=== PATIENT | female | born 1980 | race Caucasian/White ===

== ENCOUNTER → 2016-06-10 | Outpatient (REF) | payer MEDICARE, MEDICAID ==
[~2016-06-10] MED LIST: ABIL2TAB2 PO; ACET500C OR; ACET500C PO; ADVAIR INH; BACITRACIN OINTMENT TOP; BACL-67 PO; BUPR10TASR PO; CYMB60CA3 PO; DARV100T OR; EC-N500T OR; FLEXARIL PO; FLON0.05; IBUP800T OR; KLON1TAB OR; KLON1TAB PO; KLON2TAB PO; METO100T PO; NYSTATIN ORAL PO; OXYC10TA12 PO; PREG50CA PO; SING10TA31 OR; TRIL1TAB PO; TRIL600T PO; VICO5TAB OR; WELL100T PO; ZITHTAB PO
[2016-06-10 21:05] LABS: RETIC HEMOGLOBIN CONTENT CHr 33.5 PG (24-36); RETICULOCYTE % ADVIA2120 2.1 % (0.5-1.5)
[2016-06-10 21:18] LABS: TOTAL PROTEIN 6.5 GM/DL (6.4-8.2)
[2016-06-10 21:27] LABS: VITAMIN B12 LEVEL 216 PG/ML (247-911)
[2016-06-15 10:39] LABS: ALBUMIN 3.98 GM/DL (3.29-5.55); ALBUMIN % 61.3 % (55.8-66.1); GAMMA GLOBULIN % 7.5 % (11.1-18.8)
== END ==
LOC: M LAB REF 16:32
PROVIDERS: ATTEND Internal Medicine Medical Oncology
DX: D64.9 Anemia, unspecified (principal); Z79.899 Other long term (current) drug therapy

== ENCOUNTER → 2016-06-14 | Outpatient (REF) | payer MEDICARE, MEDICAID ==
[2016-06-14 14:17] LABS: OSMOLALITY URINE 703 MOSM/KG (500-800)
== END ==
LOC: M LAB REF 12:31
PROVIDERS: ATTEND Internal Medicine Medical Oncology
DX: D64.9 Anemia, unspecified (principal)

== ENCOUNTER → 2016-06-21 | Outpatient (REF) | payer MEDICARE, MEDICAID | LOC: M LAB REF 12:41 | PROVIDERS: ATTEND Internal Medicine Medical Oncology | DX: R23.3 Spontaneous ecchymoses (principal); D64.9 Anemia, unspecified ==

== ENCOUNTER → 2016-07-05 | Outpatient (CLI) | payer MEDICARE, MEDICAID ==
[~2016-07-05] MED LIST changes: +ISOVUE-370 76% 100ML VIAL (Q9967) As Ordered ONE
--- NOTE | 2016-07-05 16:51 | REP ---
Adult bone survey: 15 views: History: Iron deficiency, vitamin B12 deficiency, hydrocephalus. Technique: AP and lateral views of the skull, C-spine, T-spine, lumbosacral spine are obtained. AP view of the chest and ribs is obtained. An AP view of the pelvis is obtained. AP views of each femur and each humerus are obtained. Findings: There are metallic plates positioned at the at the mandibular side of the temporomandibular joints bilaterally. There are metallic fixation screws and wires in the mandible bilaterally. The bony calvarium is intact. No bony destructive lesion is seen. There is mild narrowing of the C5-6 disc space anteriorly. Minimal facet hypertrophy is noted in the mid cervical spine. The bony pelvic ring is intact. Normal iodinated contrast is seen opacifying the urinary bladder which is unremarkable. Renal collecting systems are opacified bilaterally as well. No bony destructive lesion is seen in the thoracic or lumbar spine. There is an old healed rib fracture on the right involving the 4th anterior rib. No bony destructive rib lesion is seen. No bony destructive lesion is seen in either femur or in either humerus. Impression: No focal bony destructive lesion seen. Evidence of prior mandibular facial trauma. Multiple metallic fixation devices. Signed by Dami Young MD 07/06/2016 08:28 A
--- NOTE | 2016-07-06 09:30 | REP ---
CT HEAD WITHOUT AND WITH CONTRAST: HISTORY: Hydrocephalus. CONTRAST: Isovue 370, 75 mL. COMPARISON: 05/12/2015. There is no intraparenchymal hemorrhage, mass, or midline shift. There is no abnormal enhancement. The ventricular system is normal in appearance. There no extracerebral collection. The visualized sinuses are clear. IMPRESSION: There is no intracranial lesion. Signed by Darian Maddox MD 07/06/2016 09:33 A
== END ==
LOC: M RAD 13:57
PROVIDERS: ATTEND Internal Medicine Medical Oncology
DX: E87.1 Hypo-osmolality and hyponatremia (principal); E53.8 Deficiency of other specified B group vitamins; E61.1 Iron deficiency
CPT/HCPCS: 70470; 77075; Q9967

== ENCOUNTER → 2016-07-12 | Outpatient (REF) | payer MEDICARE, MEDICAID ==
[~2016-07-12] MED LIST changes: -ISOVUE-370 76% 100ML VIAL (Q9967) As Ordered ONE
[2016-07-12 13:43] LABS: FREE T4 0.91 NG/DL (0.76-1.46); THYROXINE (T4) 7.1 UG/DL (4.5-12.0)
[2016-07-12 13:55] LABS: REASON FOR REVIEW COMPREHENSIVE REVIEW
[2016-07-14 00:14] LABS: FREE KAPPA LIGHT CHAINS SERUM 10.28 mg/L (3.30-19.40); FREE LAMBDA LIGHT CHAINS SERUM 12.73 mg/L (5.71-26.30); KAPPA/LAMBDA RATIO SERUM 0.81 (0.26-1.65)
== END | disposition home or self-care (01) ==
LOC: M LAB REF 12:54
PROVIDERS: ATTEND Internal Medicine Medical Oncology
DX: D53.9 Nutritional anemia, unspecified (principal)

== ENCOUNTER → 2016-07-30 | Outpatient (CLI) | payer MEDICARE, MEDICAID ==
[2016-07-30 17:48] LABS: ALBUMIN 3.9 GM/DL (3.2-5.2); ALKALINE PHOSPHATASE 54 U/L (45-117); ALT/SGPT 22 U/L (12-78); ANION GAP 9 MEQ/L (8-16); AST/SGOT 16 U/L (15-37); BILIRUBIN,TOTAL 0.4 MG/DL (0.2-1.0); BLOOD UREA NITROGEN 9 MG/DL (7-18); CALCIUM LEVEL 8.9 MG/DL (8.5-10.1); CARBON DIOXIDE LEVEL 26 MEQ/L (21-32); CHLORIDE LEVEL 95 MEQ/L (98-107); CHOLESTEROL LEVEL 187 MG/DL (<200); CREATININE FOR GFR 0.81 MG/DL (0.55-1.02); GLOMERULAR FILTRATION RATE > 60.0 (>60); GLUCOSE, FASTING 84 MG/DL (70-105); POTASSIUM SERUM 4.3 MEQ/L (3.5-5.1); SODIUM LEVEL 130 MEQ/L (136-145); TOTAL PROTEIN 6.9 GM/DL (6.4-8.2); TRIGLYCERIDES LEVEL 95 MG/DL (<150)
[2016-07-30 17:56] LABS: MEAN CORPUSCULAR HEMOGLOBIN 33.4 pg (27.0-33.0); MEAN CORPUSCULAR HGB CONC 34.9 g/dl (32.0-36.5); MEAN CORPUSCULAR VOLUME 95.7 fl (80.0-96.0); RED CELL DISTRIBUTION WIDTH 12.2 % (11.5-14.5); WHITE BLOOD COUNT 8.5 K/mm3 (4.0-10.0)
== END ==
LOC: M WUC 13:39
PROVIDERS: ATTEND Family Medicine
DX: I10 Essential (primary) hypertension (principal); D64.9 Anemia, unspecified

== ENCOUNTER → 2016-08-17 | Outpatient (CLI) | payer MEDICARE, MEDICAID ==
[~2016-08-17] VITALS: Ht 170.2 cm; Wt 65.8 kg
[~2016-08-17] MED LIST changes: +DRIS50002 PO; +FOLI5INJ2 PO; +FOLI800C PO; +IBUP-1114 PO; +IRONCAP2 PO; +LIDOCAINE 2% INJ 100 MG/5 ML SDV (FOR ANES.) As Ordered ONE; +METO-207 PO; +METO-209 PO; +NS 1,000 ML IV SCH; +OMEP40CA2 PO; +PROPOFOL 200 MG/20 ML VIAL As Ordered ONE; +SUCR1SS PO
--- NOTE | 2016-08-17 14:04 | ROOR ---
Patient Name: Susanna Espinosa Procedure Date: 08/17/2016 1:53 PM Date of : 1980 Age: 35 Room: [facility] Gender: Female Note Status: Finalized Procedure: Upper GI endoscopy Indications: Iron deficiency anemia, Dyspepsia Providers: Jaime MEJIAS MD Referring MD: YUNIOR MUSE MD Requesting Provider: Medicines: Monitored Anesthesia Care Complications: No immediate complications. Procedure: Pre-Anesthesia Assessment: - The heart rate, respiratory rate, oxygen saturations, blood pressure, adequacy of pulmonary ventilation, and response to care were monitored throughout the procedure. The Endoscope was introduced through the mouth, and advanced to the third part of duodenum. The upper GI endoscopy was accomplished without difficulty. The patient tolerated the procedure well. Findings: The esophagus was normal. The stomach was normal. The examined duodenum was normal. Biopsies were taken with a cold forceps in the entire duodenum for histology. Impression: - Normal esophagus. - Normal stomach. - Normal examined duodenum. - Biopsies were taken with a cold forceps for histology in the entire duodenum. Recommendation: - Telephone endoscopist for pathology results in 2 weeks. Jaime Mejias MD Jaime MEJIAS MD 08/17/2016 2:04:06 PM This report has been signed electronically. Number of Addenda: 0 Note Initiated On: 08/17/2016 1:53 PM Estimated Blood Loss: Estimated blood loss: none.
--- NOTE | 2016-08-17 14:17 | ROOR ---
Patient Name: Susanna Espinosa Procedure Date: 08/17/2016 1:55 PM Date of : 1980 Age: 35 Room: [facility] Gender: Female Note Status: Finalized Procedure: Colonoscopy Indications: Iron deficiency anemia, Constipation, "Narcotic gut" suspected Providers: Jaime MEJIAS MD Referring MD: YUNIOR MUSE MD Requesting Provider: Medicines: Monitored Anesthesia Care Complications: No immediate complications. Procedure: Pre-Anesthesia Assessment: - The heart rate, respiratory rate, oxygen saturations, blood pressure, adequacy of pulmonary ventilation, and response to care were monitored throughout the procedure. The Colonoscope was introduced through the anus and advanced to 10 cm into the ileum. The colonoscopy was performed without difficulty. The patient tolerated the procedure well. The quality of the bowel preparation was adequate. The bowel preparation used was GoLYTELY, Miralax and magnesium citrate. Findings: The perianal and digital rectal examinations were normal. (EXAM: Complete, PREP:Adequate) The terminal ileum appeared normal. The entire examined colon appeared normal on direct and retroflexion views. Small Internal Hemorrhoids. Impression: - Small Internal Hemorrhoids. - The examined portion of the ileum was normal. - The entire colon is normal on direct and retroflexion views. - No specimens collected. Recommendation: - Continue present medications. Jaime Mejias MD Jaime MEJIAS MD 08/17/2016 2:16:23 PM This report has been signed electronically. Number of Addenda: 0 Note Initiated On: 08/17/2016 1:55 PM Estimated Blood Loss: Estimated blood loss: none.
[2016-08-17 14:35] VITALS: BP 134/85
== END | disposition home or self-care (01) ==
LOC: M OPP 12:28
PROVIDERS: ATTEND Internal Medicine Gastroenterology
DX: D50.9 Iron deficiency anemia, unspecified (principal); K64.8 Other hemorrhoids; K59.00 Constipation, unspecified; R10.13 Epigastric pain; R00.0 Tachycardia, unspecified; I10 Essential (primary) hypertension; M19.90 Unspecified osteoarthritis, unspecified site; F33.9 Major depressive disorder, recurrent, unspecified; F41.9 Anxiety disorder, unspecified; R06.83 Snoring; E53.8 Deficiency of other specified B group vitamins; F17.210 Nicotine dependence, cigarettes, uncomplicated; Z79.899 Other long term (current) drug therapy; Z79.1 Long term (current) use of non-steroidal anti-inflammatories (NSAID); Z79.891 Long term (current) use of opiate analgesic; Z88.8 Allergy status to other drugs, medicaments and biological substances; Z88.0 Allergy status to penicillin; Z88.2 Allergy status to sulfonamides; Z88.1 Allergy status to other antibiotic agents; Z91.040 Latex allergy status

== ENCOUNTER → 2016-12-01 | Outpatient (CLI) | payer MEDICARE, MEDICAID ==
[~2016-12-01] MED LIST changes: +ABIL1TAB13 PO; -ABIL2TAB2 PO; -BACL-67 PO; +BACL1TAB9 PO; -LIDOCAINE 2% INJ 100 MG/5 ML SDV (FOR ANES.) As Ordered ONE; -METO-207 PO; -METO-209 PO; -METO100T PO; +METO100T5 PO; +METO1TAB33 PO; +METO1TAB7 PO; -NS 1,000 ML IV SCH; -PROPOFOL 200 MG/20 ML VIAL As Ordered ONE
--- NOTE | 2016-12-01 18:42 | REP ---
Chest two views HISTORY: Anemia Comparison: 04/28/2016 The lungs are clear. The heart is normal in size. The pulmonary vasculature is normal in appearance. The bony structure is intact. IMPRESSION: No acute disease. Signed by Darian Maddox MD 12/01/2016 06:34 P
[2016-12-01 20:19] LABS: MEAN CORPUSCULAR HEMOGLOBIN 32.7 pg (27.0-33.0); MEAN CORPUSCULAR HGB CONC 33.7 g/dl (32.0-36.5); RED CELL DISTRIBUTION WIDTH 12.9 % (11.5-14.5); WHITE BLOOD COUNT 10.6 K/mm3 (4.0-10.0)
[2016-12-01 20:30] LABS: ALBUMIN 3.4 GM/DL (3.2-5.2); ALBUMIN/GLOBULIN RATIO 1.62 (1.00-1.93); ALKALINE PHOSPHATASE 49 U/L (45-117); ALT/SGPT 35 U/L (12-78); ANION GAP 7 MEQ/L (8-16); AST/SGOT 16 U/L (15-37); BILIRUBIN,TOTAL 0.3 MG/DL (0.2-1.0); BLOOD UREA NITROGEN 9 MG/DL (7-18); CALCIUM LEVEL 8.3 MG/DL (8.5-10.1); CARBON DIOXIDE LEVEL 29 MEQ/L (21-32); CHLORIDE LEVEL 91 MEQ/L (98-107); CHOLESTEROL LEVEL 183 MG/DL (<200); CREATININE FOR GFR 0.68 MG/DL (0.55-1.02); GLOMERULAR FILTRATION RATE > 60.0 (>60); GLUCOSE, FASTING 78 MG/DL (70-105); POTASSIUM SERUM 4.5 MEQ/L (3.5-5.1); SODIUM LEVEL 127 MEQ/L (136-145); TOTAL PROTEIN 5.5 GM/DL (6.4-8.2); TRIGLYCERIDES LEVEL 93 MG/DL (<150)
== END ==
LOC: M WUC 17:59
PROVIDERS: ATTEND Family Medicine
DX: D64.9 Anemia, unspecified (principal); R53.83 Other fatigue; Z79.899 Other long term (current) drug therapy

== ENCOUNTER → 2017-03-08 | Outpatient (CLI) | payer MEDICARE, MEDICAID ==
--- NOTE | 2017-03-08 10:06 | REP ---
Abdominal right upper quadrant ultrasound: There is no cholelithiasis, gallbladder wall thickening or pericholecystic fluid. There is no biliary duct dilatation, The common bile duct is mildly dilated measuring up to 7.7 mm. The hepatic parenchyma is homogeneous and otherwise unremarkable. The visualized portion of the pancreatic head is unremarkable. The body and tail are obscured by bowel gas. There is no right renal hydronephrosis, calculus, mass or cyst. Right kidney is normal size measuring 12.1 cm craniocaudad length. There is no abdominal right upper quadrant free fluid. Impression: Mildly dilated common biliary duct measuring up to 7.7 millimeters. No intrahepatic biliary duct dilatation. No cholelithiasis. No ultrasound evidence of acute cholecystitis. Body and tail of pancreas are obscured by bowel gas. Signed by Osvaldo Noland MD 03/08/2017 09:57 A
== END ==
LOC: M RAD 09:08
PROVIDERS: ATTEND Nurse Practitioner Adult Health
DX: R10.9 Unspecified abdominal pain (principal)

== ENCOUNTER → 2017-05-26 | Outpatient (CLI) | payer MEDICARE, MEDICAID ==
[~2017-05-26] MED LIST changes: -ABIL1TAB13 PO; -ACET500C OR; -ACET500C PO; -ADVAIR INH; -BACITRACIN OINTMENT TOP; -BACL1TAB9 PO; -BUPR10TASR PO; -CYMB60CA3 PO; -DARV100T OR; -DRIS50002 PO; -EC-N500T OR; -FLEXARIL PO; -FLON0.05; -FOLI5INJ2 PO; -FOLI800C PO; -IBUP-1114 PO; -IBUP800T OR; -IRONCAP2 PO; -KLON1TAB OR; -KLON1TAB PO; -KLON2TAB PO; -METO100T5 PO; -METO1TAB33 PO; -METO1TAB7 PO; -NYSTATIN ORAL PO; -OMEP40CA2 PO; -OXYC10TA12 PO; -PREG50CA PO; +PROHANCE 279.3MG/ML 15ML VIAL (A9576) As Ordered; -SING10TA31 OR; -SUCR1SS PO; -TRIL1TAB PO; -TRIL600T PO; -VICO5TAB OR; -WELL100T PO; -ZITHTAB PO
== END ==
LOC: M RAD 07:37
DX: K11.8 Other diseases of salivary glands (principal)
CPT/HCPCS: A9576

== ENCOUNTER → 2017-06-27 | Outpatient (CLI) | payer MEDICARE, MEDICAID ==
[~2017-06-27] MED LIST changes: +E-Z-GAS II EFFERVESCENT PACKET (SODIUM BICARB./CITRIC ACID/SIMETHICONE) As Ordered; +E-Z-HD 98% w/w 340GM SUSP BTL As Ordered; +E-Z-PAQUE 96% w/w SUSP 176GM BTL As Ordered; -PROHANCE 279.3MG/ML 15ML VIAL (A9576) As Ordered
== END ==
LOC: M RAD 09:04
DX: R93.3 Abnormal findings on diagnostic imaging of other parts of digestive tract (principal); R13.12 Dysphagia, oropharyngeal phase; K58.9 Irritable bowel syndrome, unspecified; R10.13 Epigastric pain
CPT/HCPCS: 74245

== ENCOUNTER → 2017-06-30 | Outpatient (CLI) | payer MEDICARE, MEDICAID | LOC: M RAD 14:51 | DX: R51 Headache (principal); R42 Dizziness and giddiness; H53.8 Other visual disturbances; Z96.9 Presence of functional implant, unspecified | CPT/HCPCS: 70551 ==

== ENCOUNTER → 2018-01-12 | Outpatient (CLI) | payer MEDICARE, MEDICAID ==
[2018-01-12 17:13] LABS: HEMATOCRIT 37.6 % (36.0-47.0); HEMOGLOBIN 12.6 g/dl (12.0-15.5); MEAN CORPUSCULAR HEMOGLOBIN 33.2 pg (27.0-33.0); MEAN CORPUSCULAR HGB CONC 33.5 g/dl (32.0-36.5); MEAN CORPUSCULAR VOLUME 99.2 fl (80.0-96.0); PLATELET COUNT, AUTOMATED 365 10^3/uL (150-450); RED BLOOD COUNT 3.79 10^6/uL (4.00-5.40); RED CELL DISTRIBUTION WIDTH 14.6 % (11.5-14.5); WHITE BLOOD COUNT 7.6 10^3/uL (4.0-10.0)
[2018-01-12 17:29] LABS: ALBUMIN/GLOBULIN RATIO 1.15 (1.00-1.93); ALKALINE PHOSPHATASE 62 U/L (45-117); ALT/SGPT 14 U/L (12-78); ANION GAP 9 MEQ/L (8-16); AST/SGOT 12 U/L (7-37); BILIRUBIN,TOTAL 0.5 MG/DL (0.2-1.0); BLOOD UREA NITROGEN 7 MG/DL (7-18); C REACTIVE PROTEIN QUANTITATIV < 0.30 MG/DL (0.00-0.30); CALCIUM LEVEL 8.4 MG/DL (8.5-10.1); CARBON DIOXIDE LEVEL 25 MEQ/L (21-32); CHLORIDE LEVEL 112 MEQ/L (98-107); CREATININE FOR GFR 0.78 MG/DL (0.55-1.30); FREE T4 0.93 NG/DL (0.76-1.46); GLOMERULAR FILTRATION RATE > 60.0 (>60); GLUCOSE, FASTING 93 MG/DL (70-100); NT-PRO BNP 130 PG/ML (<125); POTASSIUM SERUM 3.6 MEQ/L (3.5-5.1); SODIUM LEVEL 146 MEQ/L (136-145); THYROID STIMULATING HORMONE 0.615 uIU/ML (0.358-3.740); TOTAL PROTEIN 5.6 GM/DL (6.4-8.2)
[2018-01-12 19:08] LABS: ERYTHROCYTE SEDIMENTATION RATE 3 mm/hr (0-20)
[2018-01-15 00:06] LABS: Lyme Disease IgG/IgM Antibodie <0.91 ISR (0.00-0.90); Lyme Disease IgM Ab Quantitati <0.80 index (0.00-0.79)
== END ==
LOC: M WUC 15:26
DX: R55 Syncope and collapse (principal); I34.0 Nonrheumatic mitral (valve) insufficiency; I44.0 Atrioventricular block, first degree; F41.9 Anxiety disorder, unspecified
CPT/HCPCS: 84443

== ENCOUNTER → 2019-09-12 | Outpatient (CLI) | payer MEDICARE, MEDICAID ==
[~2019-09-12] MED LIST changes: +ABIL1TAB13 PO; +ACET500C OR; +ACET500C PO; +ADVAIR INH; +BACITRACIN OINTMENT TOP; +BACL1TAB9 PO; +BUPR10TASR PO; +CYMB60CA3 PO; +DARV100T OR; +DRIS50003 PO; -E-Z-GAS II EFFERVESCENT PACKET (SODIUM BICARB./CITRIC ACID/SIMETHICONE) As Ordered; -E-Z-HD 98% w/w 340GM SUSP BTL As Ordered; -E-Z-PAQUE 96% w/w SUSP 176GM BTL As Ordered; +EC-N500T OR; +FLEXARIL PO; +FLON0.05; +FOLI5INJ2 PO; +FOLI800C PO; +IBUP-1114 PO; +IBUP800T OR; +IRONCAP2 PO; +KLON1TAB OR; +KLON1TAB PO; +KLON2TAB PO; +METO100T5 PO; +METO1TAB33 PO; +METO1TAB7 PO; +NYSTATIN ORAL PO; +OMEP40CA97 PO; +OXYC10TA12 PO; +PREG50CA PO; +SING10TA31 OR; +SUCR1SS PO; +TRIL1TAB PO; +TRIL600T PO; +VICO5TAB OR; +WELL100T PO; +ZITHTAB PO
[2019-09-12 16:31] LABS: HEMATOCRIT 37.1 % (36.0-47.0); HEMOGLOBIN 12.3 g/dl (12.0-15.5); MEAN CORPUSCULAR HGB CONC 33.2 g/dl (32.0-36.5); MEAN CORPUSCULAR VOLUME 96.6 fl (80.0-96.0); PLATELET COUNT, AUTOMATED 273 10^3/uL (150-450); RED BLOOD COUNT 3.84 10^6/uL (4.00-5.40); WHITE BLOOD COUNT 9.9 10^3/uL (4.0-10.0)
[2019-09-12 17:06] LABS: ALBUMIN 3.6 GM/DL (3.2-5.2); ALT/SGPT 22 U/L (12-78); BILIRUBIN,TOTAL 0.5 MG/DL (0.2-1.0); BLOOD UREA NITROGEN 16 MG/DL (7-18); CARBON DIOXIDE LEVEL 32 MEQ/L (21-32); CHLORIDE LEVEL 104 MEQ/L (98-107); CHOLESTEROL LEVEL 189 MG/DL (<200); GLOMERULAR FILTRATION RATE > 60.0 (>60); GLUCOSE, FASTING 92 MG/DL (70-100); HDL CHOLESTEROL 67 MG/DL (>40); LDL CHOLESTEROL 97 MG/DL (<100); NON-HDL-C 122 MG/DL; POTASSIUM SERUM 4.2 MEQ/L (3.5-5.1); SODIUM LEVEL 138 MEQ/L (136-145); TOTAL PROTEIN 6.8 GM/DL (6.4-8.2); TRIGLYCERIDES LEVEL 126 MG/DL (<150)
--- NOTE | 2019-09-13 03:02 | REP ---
Clinical: Preoperative assessment . Comparison: 12/01/2016 . Technique: PA and lateral. Findings: The mediastinum and cardiac silhouette are normal. The lung sosa are clear and without acute consolidation, effusion, or pneumothorax. The skeletal structures are intact and normal. Impression: 1. No acute cardiopulmonary process. Electronically Signed by Ritesh Jasso MD 09/13/2019 02:53 A
== END ==
LOC: M WUC 14:37
PROVIDERS: ATTEND Family Medicine
DX: Z01.818 Encounter for other preprocedural examination (principal); D64.9 Anemia, unspecified; I10 Essential (primary) hypertension

== ENCOUNTER → 2020-03-25 | Outpatient (CLI) | payer MEDICARE, MEDICAID ==
[2020-03-25 16:10] LABS: HEMATOCRIT 39.2 % (36.0-47.0); HEMOGLOBIN 12.8 g/dl (12.0-15.5); MEAN CORPUSCULAR HEMOGLOBIN 31.9 pg (27.0-33.0); MEAN CORPUSCULAR HGB CONC 32.7 g/dl (32.0-36.5); MEAN CORPUSCULAR VOLUME 97.8 fl (80.0-96.0); PLATELET COUNT, AUTOMATED 329 10^3/uL (150-450); RED BLOOD COUNT 4.01 10^6/uL (4.00-5.40); WHITE BLOOD COUNT 9.2 10^3/uL (4.0-10.0)
[2020-03-25 16:27] LABS: HEMOGLOBIN A1c 5.3 %
[2020-03-25 16:44] LABS: ALBUMIN 4.2 GM/DL (3.2-5.2); BILIRUBIN,TOTAL 0.6 MG/DL (0.2-1.0); CALCIUM LEVEL 9.6 MG/DL (8.5-10.1); CHOLESTEROL RISK RATIO 3.54 (<5); CREATININE FOR GFR 1.41 MG/DL (0.55-1.30); PERCENT SATURATION 25.3 % (13.2-45.0); POTASSIUM SERUM 5.1 MEQ/L (3.5-5.1); THYROID STIMULATING HORMONE 1.04 uIU/ML (0.358-3.740); TOTAL PROTEIN 6.9 GM/DL (6.4-8.2)
[2020-03-25 16:47] LABS: TOTAL 25(OH) VITAMIN D 53.5 NG/ML (30.0-100.0)
[2020-03-25 16:48] LABS: FOLATE 19.8 NG/ML
== END ==
LOC: M WUC 15:04
PROVIDERS: ATTEND Family Medicine
DX: D64.9 Anemia, unspecified (principal); R53.83 Other fatigue; E03.9 Hypothyroidism, unspecified; Z79.899 Other long term (current) drug therapy

== ENCOUNTER → 2022-01-06 | Outpatient (CLI) | payer MEDICARE, MEDICAID ==
[~2022-01-06] MED LIST changes: -CYMB60CA3 PO; +CYMB60CA4 PO; +OMEP40CA4 PO; -OMEP40CA97 PO
[2022-01-06 14:52] LABS: HEMATOCRIT 36.8 % (36.0-47.0); HEMOGLOBIN 11.7 g/dl (12.0-15.5); MEAN CORPUSCULAR HEMOGLOBIN 32.2 pg (27.0-33.0); MEAN CORPUSCULAR HGB CONC 31.8 g/dl (32.0-36.5); MEAN CORPUSCULAR VOLUME 101.4 fl (80.0-96.0); PLATELET COUNT, AUTOMATED 307 10^3/uL (150-450); RED BLOOD COUNT 3.63 10^6/uL (4.00-5.40); WHITE BLOOD COUNT 8.3 10^3/uL (4.0-10.0)
[2022-01-06 19:47] LABS: HEMOGLOBIN A1c 5.1 %
[2022-01-06 21:20] LABS: ALBUMIN 3.2 GM/DL (3.2-5.2); ALT/SGPT 23 U/L (12-78); BILIRUBIN,TOTAL 0.2 MG/DL (0.2-1.0); BLOOD UREA NITROGEN 10 MG/DL (7-18); CARBON DIOXIDE LEVEL 26 MEQ/L (21-32); CHLORIDE LEVEL 102 MEQ/L (98-107); CHOLESTEROL LEVEL 156 MG/DL (<200); CHOLESTEROL RISK RATIO 2.516 (<5); CREATININE FOR GFR 0.96 MG/DL (0.55-1.30); GLOMERULAR FILTRATION RATE > 60.0 (>58); GLUCOSE, FASTING 87 MG/DL (70-100); HDL CHOLESTEROL 62 MG/DL (>40); IRON (FE) 117 UG/DL (50-170); LDL CHOLESTEROL 60 MG/DL (<100); NON-HDL-C 94 MG/DL; PERCENT SATURATION 47.6 % (13.2-45.0); POTASSIUM SERUM 4.4 MEQ/L (3.5-5.1); SODIUM LEVEL 134 MEQ/L (136-145); TOTAL 25(OH) VITAMIN D 70.9 NG/ML (30.0-100.0); TOTAL IRON BINDING CAPACITY 246 UG/DL (250-450); TOTAL PROTEIN 6.4 GM/DL (6.4-8.2); TRIGLYCERIDES LEVEL 170 MG/DL (<150)
== END ==
LOC: M LAB 14:10
PROVIDERS: ATTEND Family Medicine
DX: D64.9 Anemia, unspecified (principal); R53.83 Other fatigue; E03.9 Hypothyroidism, unspecified; I25.10 Atherosclerotic heart disease of native coronary artery without angina pectoris; Z79.899 Other long term (current) drug therapy; Z02.89 Encounter for other administrative examinations

== ENCOUNTER → 2022-04-13 | Outpatient (CLI) | payer MEDICARE, MEDICAID | LOC: M LAB 14:42 | PROVIDERS: ATTEND Family Medicine | DX: Z51.81 Encounter for therapeutic drug level monitoring (principal); Z79.899 Other long term (current) drug therapy ==

== ENCOUNTER → 2022-10-11 | Outpatient (CLI) | payer MEDICARE, MEDICAID | LOC: M RAD 16:15 | PROVIDERS: ATTEND Physician Assistant | DX: J32.8 Other chronic sinusitis (principal); D64.9 Anemia, unspecified; R53.83 Other fatigue ==

== ENCOUNTER → 2022-10-11 | Outpatient (CLI) | payer MEDICARE, MEDICAID ==
[2022-10-11 17:59] LABS: PTH INTACT 27.1 PG/ML (18.5-88.0)
[2022-10-11 18:03] LABS: FOLLICLE STIMULATING HORMONE 6.6 mIU/ML
[2022-10-11 18:04] LABS: LUTEINIZING HORMONE 2.8 mIU/ML; PROLACTIN 98.29 NG/ML
[2022-10-11 18:05] LABS: ESTRADIOL 185.4 PG/ML
== END ==
LOC: M LAB 16:10
PROVIDERS: ATTEND Family Medicine
DX: D64.9 Anemia, unspecified (principal); R53.83 Other fatigue

== ENCOUNTER → 2023-09-08 | Outpatient (CLI) | payer MEDICAID, MEDICARE ==
[~2023-09-08] MED LIST changes: +CLON-952 PO; -KLON1TAB PO; +KLON1TAB13 PO; -KLON2TAB PO
[2023-09-08 19:35] LABS: HEPATITIS C VIRUS ABY INDEX 0.02 INDEX (<0.8)
[2023-09-10 05:07] LABS: HSV TYPE I IgG SPECIFIC >62.20 index (0.00-0.90)
== END ==
LOC: M PLALAB 15:39
PROVIDERS: ATTEND Physician Assistant
DX: Z11.3 Encounter for screening for infections with a predominantly sexual mode of transmission (principal); Z72.89 Other problems related to lifestyle; Z11.59 Encounter for screening for other viral diseases

== ENCOUNTER → 2023-09-09 | Outpatient (CLI) | payer MEDICARE | LOC: M PLAIMG 14:37 | PROVIDERS: ATTEND Anesthesiology Pain Medicine | DX: M53.3 Sacrococcygeal disorders, not elsewhere classified (principal) ==

== ENCOUNTER 2024-05-24 21:16 | Inpatient (IN) | payer MEDICARE ==
[~2024-05-24] VITALS: Ht 167.6 cm; Wt 65.9 kg
[2024-05-24 21:39] LABS: HEMATOCRIT 34.6 % (36.0-47.0); HEMOGLOBIN 11.3 g/dl (12.0-15.5); MEAN CORPUSCULAR HEMOGLOBIN 32.7 pg (27.0-33.0); MEAN CORPUSCULAR HGB CONC 32.7 g/dl (32.0-36.5); PLATELET COUNT, AUTOMATED 248 10^3/uL (150-450); RED BLOOD COUNT 3.46 10^6/uL (4.00-5.40); WHITE BLOOD COUNT 8.7 10^3/uL (4.0-10.0)
[2024-05-24] MEDS ORDERED: IBUP200T46 PO (21:56)
[2024-05-24] MEDS ORDERED: ACET-897 PO (21:56)
[2024-05-24] MEDS ORDERED: METO10TA3 PO (21:56)
[2024-05-24] MEDS ORDERED: HYDR-3719 PO (21:56)
[2024-05-24] MEDS ORDERED: NADO40TA40 PO (21:58)
[2024-05-24] MEDS ORDERED: VILA10TA PO (21:58)
[2024-05-24] MEDS ORDERED: HOME MED LIST COMPLETE! XX SCH (22:00)
[2024-05-24 22:18] LABS: AMPHETAMINES LEVEL URINE NEGATIVE (NEGATIVE); BARBITURATES URINE NEGATIVE (NEGATIVE); BENZODIAZEPINES URINE NEGATIVE (NEGATIVE); COCAINE METABOLITE URINE NEGATIVE (NEGATIVE); METHADONE URINE NEGATIVE (NEGATIVE); PHENCYCLIDINE URINE NEGATIVE (NEGATIVE)
[2024-05-24 22:20] LABS: ETHYL ALCOHOL (ETHANOL) 0.005 % (0.000-0.010)
[2024-05-24 22:22] LABS: ALBUMIN 3.8 G/DL (3.2-5.2); ALKALINE PHOSPHATASE 55 U/L (35-104); ALT/SGPT 14 U/L (7.0-40); AST/SGOT 13 U/L (<34); BILIRUBIN,DIRECT < 0.1 MG/DL (<0.4); BILIRUBIN,TOTAL 0.3 MG/DL (0.3-1.2); BLOOD UREA NITROGEN 14 MG/DL (9-23); CALCIUM LEVEL 8.8 MG/DL (8.5-10.1); CARBON DIOXIDE LEVEL 25 MMOL/L (20-31); CHLORIDE LEVEL 110 MMOL/L (98-107); CREATININE FOR GFR 1.27 MG/DL (0.55-1.30); GLOMERULAR FILTRATION RATE 48.7 (>58); GLUCOSE, FASTING 131 MG/DL (60-100); POTASSIUM SERUM 4.8 MMOL/L (3.5-5.1); SALICYLATE LEVEL < 3.0 MG/DL (<30); SODIUM LEVEL 142 MMOL/L (136-145); TOTAL PROTEIN 6.5 G/DL (5.7-8.2)
[2024-05-24 22:23] LABS: CANNABINOIDS URINE POSITIVE (NEGATIVE); OPIATES URINE POSITIVE (NEGATIVE)
[2024-05-24 22:24] LABS: THYROID STIMULATING HORMONE 1.852 uIU/ML (0.55-4.78)
[2024-05-24 22:34] LABS: HCG, SERUM QUALITATIVE NEGATIVE (NEGATIVE)
[2024-05-24] MEDS: ACETAMINOPHEN 325 MG TAB PO ONE (22:39)
[2024-05-24] MEDS: IBUPROFEN 600MG TAB PO ONE (22:39)
[2024-05-24] MEDS ORDERED: MOM 30ML SUSPENSION UDC PO PRN (22:55)
[2024-05-24] MEDS ORDERED: ACETAMINOPHEN 325 MG TAB PO PRN (22:55)
[2024-05-24] MEDS ORDERED: diphenhydrAMINE 25MG CAP PO PRN (22:55)
[2024-05-24] MEDS ORDERED: MAALOX 30 ML SUSP *UDC PO PRN (22:55)
[2024-05-24] MEDS ORDERED: OXYB5TAB14 PO (23:52)
[2024-05-25] MEDS ORDERED: UNRESOLVED CLARIFICATION ENTRY XX SCH (00:01)
[2024-05-25] MEDS: traZODone 50 MG TAB PO PRN (00:35)
[2024-05-25] MEDS: clonazePAM 1 MG TAB PO PRN (00:35)
[2024-05-25 06:35] VITALS: BP 105/62; TEMP 97.2; O2SAT 100
[2024-05-25] MEDS: IBUPROFEN 400MG TAB PO PRN (08:25)
[2024-05-25] MEDS ORDERED: METOCLOPRAMIDE 10MG TAB PO PRN (08:30)
[2024-05-25] MEDS ORDERED: ANEXSIA, NORCO 7.5MG/325MG TABLET(HYDROCODONE/APAP) PO PRN (08:30)
[2024-05-25] MEDS: NICOTINE 14 MG/24 HR TRANSDERMAL TD SCH (08:34)
[2024-05-25] MEDS ORDERED: PILL CUTTER 1 EACH XX PRN (09:35)
[2024-05-25 09:57] VITALS: BP 121/91
[2024-05-25] MEDS: NADOLOL 20MG TABLET PO SCH (09:57)
[2024-05-25] MEDS ORDERED: BACLOFEN 10 MG TAB PO PRN (10:20)
[2024-05-25 15:48] VITALS: BP 121/91; TEMP 97.2; O2SAT 100
== END 2024-05-25 12:15 | disposition home or self-care (01) | DRG 881 ==
LOC: M ED 21:16 → M ED INP 22:52 → M PSY 23:50
PROVIDERS: ADMIT Psychiatry & Neurology Neurology; ATTEND Psychiatry & Neurology Psychiatry
DX: F32.A Depression, unspecified (principal); I47.19 Other supraventricular tachycardia; F41.9 Anxiety disorder, unspecified; R73.9 Hyperglycemia, unspecified; G89.29 Other chronic pain; I10 Essential (primary) hypertension; F17.290 Nicotine dependence, other tobacco product, uncomplicated; Z81.1 Family history of alcohol abuse and dependence; Z79.899 Other long term (current) drug therapy; Z88.0 Allergy status to penicillin; Z88.1 Allergy status to other antibiotic agents; Z88.2 Allergy status to sulfonamides; Z88.5 Allergy status to narcotic agent; Z88.8 Allergy status to other drugs, medicaments and biological substances; Z91.040 Latex allergy status; Z91.52 Personal history of nonsuicidal self-harm

== ENCOUNTER → 2024-07-02 | Outpatient (CLI) | payer MEDICARE ==
[~2024-07-02] MED LIST changes: +ACET-897 PO; +HYDR-3719 PO; +IBUP200T46 PO; +METO10TA3 PO; +NADO40TA40 PO; +OXYB5TAB14 PO; +VILA10TA PO
[2024-07-02 16:44] LABS: HEMATOCRIT 34.1 % (36.0-47.0); MEAN CORPUSCULAR HEMOGLOBIN 32.2 pg (27.0-33.0); MEAN CORPUSCULAR HGB CONC 32.3 g/dl (32.0-36.5); MEAN CORPUSCULAR VOLUME 99.7 fl (80.0-96.0); PLATELET COUNT, AUTOMATED 236 10^3/uL (150-450); RED BLOOD COUNT 3.42 10^6/uL (4.00-5.40)
[2024-07-02 16:50] LABS: ALBUMIN 3.6 G/DL (3.2-5.2); BILIRUBIN,TOTAL 0.4 MG/DL (0.3-1.2); CALCIUM LEVEL 8.8 MG/DL (8.5-10.1); CHOLESTEROL RISK RATIO 3.5 (<5); CREATININE FOR GFR 1.19 MG/DL (0.55-1.30); GLOMERULAR FILTRATION RATE 52.5 (>58); HDL CHOLESTEROL 53.7 MG/DL (>40); LDL CHOLESTEROL 110.3 MG/DL (<100); NON-HDL-C 134.3 MG/DL; POTASSIUM SERUM 5.1 MMOL/L (3.5-5.1); TOTAL PROTEIN 6.3 G/DL (5.7-8.2)
[2024-07-02 16:53] LABS: FREE T4 1.13 NG/DL (0.89-1.76); THYROID STIMULATING HORMONE 1.585 uIU/ML (0.55-4.78)
[2024-07-02 16:54] LABS: FOLATE 20.82 NG/ML (>5.4)
== END ==
LOC: M WUC 13:37
PROVIDERS: ATTEND Physician Assistant
DX: F41.1 Generalized anxiety disorder (principal); R00.2 Palpitations; Z79.899 Other long term (current) drug therapy

== ENCOUNTER → 2024-12-12 | Outpatient (CLI) | payer MEDICARE ==
[~2024-12-12] MED LIST changes: -PREG50CA PO; +PREG50CA87 PO
== END ==
LOC: M WHC 14:31
PROVIDERS: ATTEND Physician Assistant
DX: Z12.31 Encounter for screening mammogram for malignant neoplasm of breast (principal); R10.2 Pelvic and perineal pain; R92.343 Mammographic extreme density, bilateral breasts; N63.25 Unspecified lump in the left breast, overlapping quadrants

== ENCOUNTER → 2025-01-15 | Outpatient (CLI) | payer MEDICARE, MEDICAID | LOC: M CARPUL 14:17 | PROVIDERS: ATTEND Internal Medicine Cardiovascular Disease | DX: R06.02 Shortness of breath (principal); I44.30 Unspecified atrioventricular block ==

== ENCOUNTER → 2025-03-05 | Outpatient (CLI) | payer MEDICARE, MEDICAID ==
[~2025-03-05] MED LIST changes: +CARDIAC STRESS TEST RESCUE BOX 1 KIT EA XX ONE
== END ==
LOC: M CARPUL 07:20
PROVIDERS: ATTEND Internal Medicine Cardiovascular Disease
DX: R06.02 Shortness of breath (principal); R94.31 Abnormal electrocardiogram [ECG] [EKG]
CPT/HCPCS: 78451; 93017; A9500; J2785

== ENCOUNTER → 2025-03-21 | Outpatient (REF) | payer MEDICARE, MEDICAID ==
[~2025-03-21] MED LIST changes: -CARDIAC STRESS TEST RESCUE BOX 1 KIT EA XX ONE
== END ==
LOC: M LAB REF 17:21
PROVIDERS: ATTEND Student in an Organized Health Care Education/Training Program
DX: R30.0 Dysuria (principal)

== ENCOUNTER → 2025-04-08 | Outpatient (CLI) | payer MEDICARE, MEDICAID ==
[2025-04-08 10:40] LABS: CALCIUM LEVEL 9.3 MG/DL (8.5-10.1); CARBON DIOXIDE LEVEL 30.0 MMOL/L (20-31); CHLORIDE LEVEL 103.0 MMOL/L (98-107); CORTISOL AM 9.3 UG/DL (4.3-22.4); CREATININE FOR GFR 1.25 MG/DL (0.55-1.30); GLOMERULAR FILTRATION RATE 54.2 (>58); POTASSIUM SERUM 4.9 MMOL/L (3.5-5.1); SODIUM LEVEL 139.0 MMOL/L (136-145)
[2025-04-12 17:07] LABS: ALDOSTERONE 4.0 ng/dL (see note)
== END ==
LOC: M LAB 08:31
PROVIDERS: ATTEND Student in an Organized Health Care Education/Training Program
DX: R79.89 Other specified abnormal findings of blood chemistry (principal)